=== PATIENT | male | born 1985 | race Two or more races ===

== ENCOUNTER 2024-05-20 08:35 | Emergency (ER) | payer MEDICAID, OTHER ==
[~2024-05-20] VITALS: Ht 175.3 cm; Wt 81.6 kg
[2024-05-20] MEDS ORDERED: CLIN300C12 PO (09:09)
[2024-05-20] MEDS ORDERED: CLINDAMYCIN HCL 150 MG CAPSULE ONE (09:15)
[2024-05-20] MEDS: CLINDAMYCIN HCL 150 MG CAPSULE PO ONE (09:16)
[2024-05-20 09:27] VITALS: BP 132/69; TEMP 98.2; O2SAT 97
== END 2024-05-20 09:28 | disposition home or self-care (01) ==
LOC: ER 08:41 → EDBD 08:41 → ER 09:28
DX: L03.221 Cellulitis of neck (principal)

== ENCOUNTER 2024-06-01 10:03 | Emergency (ER) | payer MEDICAID ==
[~2024-06-01] VITALS: Ht 165.1 cm; Wt 67.1 kg
[~2024-06-01 10:03] MED LIST: CLIN300C12 PO
[2024-06-01 10:08] VITALS: BP 123/84; TEMP 98.1
[2024-06-01] MEDS ORDERED: SULF1TAB48 PO (10:23)
[2024-06-01] MEDS ORDERED: CEPH-570 PO (10:23)
[2024-06-01 10:30] VITALS: O2SAT 100
== END 2024-06-01 10:32 | disposition home or self-care (01) ==
LOC: ER 10:05
DX: F19.10 Other psychoactive substance abuse, uncomplicated (principal); M54.2 Cervicalgia

== ENCOUNTER 2024-12-24 22:31 | Emergency (ER) | payer MEDICAID, OTHER ==
[~2024-12-24] VITALS: Ht 175.3 cm; Wt 90.7 kg
[~2024-12-24 22:31] MED LIST changes: +CEPH-570 PO; +SULF1TAB48 PO
[2024-12-24 22:51] VITALS: BP 131/89; TEMP 97.8; O2SAT 97
== END 2024-12-24 22:52 ==
LOC: ER 22:35
DX: F19.90 Other psychoactive substance use, unspecified, uncomplicated (principal); Z79.899 Other long term (current) drug therapy